=== PATIENT | female | born 1980 | race Caucasian/White ===

== ENCOUNTER 2023-08-04 18:20 | Emergency (ER) | payer MEDICAID ==
[~2023-08-04] VITALS: Ht 154.9 cm; Wt 84.0 kg
[2023-08-04] MEDS ORDERED: ACET-1304 PO (22:00)
[2023-08-04] MEDS: ACETAMINOPHEN 500 MG TAB PO ONE (22:16)
[2023-08-04 22:49] VITALS: BP 129/78; PULSE 88; RESP 17; TEMP 98.6
[2023-08-04 23:09] VITALS: O2SAT 98
== END 2023-08-04 23:16 | disposition home or self-care (01) ==
LOC: ER 18:20
DX: S60.221A Contusion of right hand, initial encounter (principal); F41.9 Anxiety disorder, unspecified; M19.90 Unspecified osteoarthritis, unspecified site; J45.909 Unspecified asthma, uncomplicated; F32.A Depression, unspecified; W22.8XXA Striking against or struck by other objects, initial encounter; Y93.89 Activity, other specified; Y92.89 Other specified places as the place of occurrence of the external cause; Y99.8 Other external cause status